=== PATIENT | male | born 1955 | race Caucasian/White ===

== ENCOUNTER → 2021-04-06 | Outpatient (CLI) | payer MEDICARE, BC ==
[~2021-04-06] MED LIST: CLON1TAB PO; CYPR4TAB36 PO; ETAN50CA INJ; MONT10TA6 PO; PREG100C PO; TRAZ50TA66 PO; VALA10004 PO; VALG450T PO; [UNRECOGNIZED DRUG - CODE] SQ
== END | disposition home or self-care (01) ==
LOC: STAR 15:21
PROVIDERS: ATTEND Neurological Surgery
DX: Z01.812 Encounter for preprocedural laboratory examination (principal); Z20.822 Contact with and (suspected) exposure to COVID-19; M48.061 Spinal stenosis, lumbar region without neurogenic claudication; R00.1 Bradycardia, unspecified
CPT/HCPCS: 71046; 93005; U0003; U0005